=== PATIENT | male | born 1990 | race Caucasian/White ===

== ENCOUNTER 2020-08-10 11:40 | Emergency (ER) | payer OTHER ==
[2020-08-10 13:00] LABS: HEMOGLOBIN 12.7 gm/dl (14.0-17.5); RED BLOOD COUNT 3.54 M/UL (4.20-5.50); WHITE BLOOD COUNT 8.1 K/UL (4.5-11.0)
[2020-08-10 13:30] LABS: BUN/CREATININE RATIO 4 (0-10)
[2020-08-10] MEDS ORDERED: KLOR-CON M2020 MEQ PO (17:51)
[2020-08-11 11:14] LABS: HBSAG SCREEN Negative (Negative); HEP A AB, IGM Negative (Negative); HEP B CORE AB, IGM Negative (Negative); HEP C VIRUS AB <0.1 (0.0-0.9)
== END 2020-08-10 19:00 | disposition home or self-care (01) ==
LOC: ER1 11:40
PROVIDERS: Physician Assistant
DX: K75.9 Inflammatory liver disease, unspecified (principal); E87.6 Hypokalemia; F17.210 Nicotine dependence, cigarettes, uncomplicated; Z88.0 Allergy status to penicillin
CPT/HCPCS: 71045; 80053; 80074; 80307; 83880; 85025; 85610; 96374; 96375; 99284; G0480; J2270; J2405; J3480; Q9967